=== PATIENT | male | born 1995 | race Two or more races ===

== ENCOUNTER 2023-10-20 11:33 | Inpatient (IN) | payer OTHER ==
[2023-10-20 13:05] VITALS: BMI 25.7
[2023-10-20] MEDS ORDERED: IBUPROFEN 600 MG TABLET (FP) PO PRN (14:07)
[2023-10-20] MEDS ORDERED: guaiFENesin 600 MG TABLET.ER (FP) PO PRN (14:07)
[2023-10-20] MEDS ORDERED: BENZONATATE 200 MG CAPSULE PO PRN (14:07)
[2023-10-20] MEDS ORDERED: POLYETHYLENE GLYCOL (HEALTHYLAX) 3350 17 GM PACKET PO PRN (14:07)
[2023-10-20] MEDS ORDERED: BENZOCAINE/MENTHOL (CHLORASEPTIC ) LOZENGE MM PRN (14:07)
[2023-10-20] MEDS ORDERED: MAGNESIUM HYDROX 2400MG/30ML ORAL SUSPENSION 30 ML CUP PO PRN (14:07)
[2023-10-20] MEDS ORDERED: NALOXONE HCL 0.4 MG/ML VIAL IM PRN (14:07)
[2023-10-20] MEDS ORDERED: IBUPROFEN 400 MG TABLET (FP) PO PRN (14:07)
[2023-10-20] MEDS ORDERED: LOPERAMIDE HCL 2 MG CAPSULE PO PRN (14:07)
[2023-10-20] MEDS ORDERED: NALOXONE (NARCAN) HCL 4 MG/0.1 ML SPRAY NS PRN (14:07)
[2023-10-20] MEDS ORDERED: MAG HYDROX/AL HYDROX/SIMETH 30 ML UNIT-DOSE CUP PO PRN (14:07)
[2023-10-20] MEDS ORDERED: NICOTINE 14 MG/24 HOURS TOPICAL PATCH TD ONE (15:17)
[2023-10-20] MEDS ORDERED: PRENATAL VITAMINS W/ FOLIC ACID TABLET (FP) PO ONE (15:17)
[2023-10-20] MEDS: PRENATAL VITAMINS W/ FOLIC ACID TABLET (FP) PO SCH (15:27)
[2023-10-20] MEDS: NICOTINE 14 MG/24 HOURS TOPICAL PATCH TD SCH (15:27)
[2023-10-20] MEDS ORDERED: TUBERCULIN PPD 5 TU/0.1ML VIAL ID ONE ×2 (16:42→21:38)
[2023-10-20] MEDS: THIAMINE 100 MG TABLET PO SCH (21:34)
[2023-10-20] MEDS: MELATONIN 5 MG TABLETS PO SCH (21:34)
[2023-10-21 12:53] LABS: HEMATOCRIT 45.4 % (35.4-49); HEMOGLOBIN 15.8 GM/dL (11.7-16.9); MCH 32.5 pg (25.7-33.7); MCHC 34.8 g/dl (32.0-35.9); MEAN CELL VOLUME 93.3 fl (80-96); MEAN PLT VOLUME 9.6 fl (7.5-11.1); PLATELET COUNT 224 10^3/uL (134-434); RBC 4.86 M/mm3 (4.00-5.60); RDW 12.8 % (11.9-15.9); WHITE BLOOD COUNT 5.7 K/mm3 (4.0-10.0)
[2023-10-21 13:02] LABS: POTASSIUM 4.4 mmol/L (3.5-5.1)
[2023-10-21 13:07] LABS: BLOOD UREA NITROGEN 8.3 mg/dL (7-18)
[2023-10-21 13:09] LABS: ALBUMIN 3.4 g/dl (3.4-5.0); CALCIUM 8.9 mg/dL (8.5-10.1)
[2023-10-21 13:11] LABS: CREATININE 0.7 mg/dL (0.55-1.3)
[2023-10-21 13:12] LABS: BILIRUBIN,TOTAL 0.6 mg/dL (0.2-1)
[2023-10-21 13:13] LABS: TOT PROT 6.3 g/dl (6.4-8.2)
[2023-10-21 13:14] LABS: SYPHILIS W/ RPR CONF NON-REACTIVE (NONREACTIVE)
[2023-10-21 13:56] LABS: HIV INTERPRETATION NEGATIVE (NEGATIVE)
[2023-10-21] MEDS: ARIPiprazole 2 MG TABLET PO ONE (14:06)
[2023-10-21 17:04] LABS: URINE APPEARANCE Slightly Cloudy; URINE BILIRUBIN Negative (NEGATIVE); URINE COLOR Dark yellow; URINE GLUCOSE (UA) Negative (NEGATIVE); URINE KETONE Trace (NEGATIVE); URINE LEUK ESTERASE Negative (NEGATIVE); URINE NITRITE Negative (NEGATIVE); URINE PROTEIN 1+ (NEGATIVE)
[2023-10-21 17:42] LABS: HYALINE CASTS 0.43 /uL (0-3.1); URINE BACTERIA 1.8 /uL (0-1359); URINE RBC 9.4 /uL (0-23.9); URINE WBC 4.3 /uL (0-25.8)
[2023-10-22] MEDS: ARIPiprazole 5 MG TABLET PO SCH (09:22)
[2023-10-22] MEDS: ACETAMINOPHEN 325 MG TABLET (FP) PO PRN (09:23)
[2023-10-23] MEDS: hydrOXYzine PAMOATE 25 MG CAPSULE (FP) PO PRN (21:49)
[2023-10-24] MEDS: HYDROCORTISONE 0.5% TOPICAL CREAM 30 GM TUBE TP PRN (10:37)
[2023-10-26] MEDS ORDERED: NICOTINE 14 MG/24 HOURS TOPICAL PATCH TD PRN (13:57)
[2023-10-28 06:21] VITALS: RESP 20
[2023-10-29 06:29] VITALS: BP 122/76; PULSE 76; TEMP 98
== END 2023-10-29 10:23 | disposition home or self-care (01) | DRG 772 ==
LOC: YASAS 11:33 → Y3E 15:57
PROVIDERS: ADMIT Allergy & Immunology; ATTEND Psychiatry & Neurology Pain Medicine
PROC: HZ42ZZZ Group Counseling for Substance Abuse Treatment, Cognitive-Behavioral (ICD-10-PCS; principal; 2023-10-20)
DX: F14.20 Cocaine dependence, uncomplicated (principal); F17.210 Nicotine dependence, cigarettes, uncomplicated; F19.24 Other psychoactive substance dependence with psychoactive substance-induced mood disorder; F32.A Depression, unspecified; L40.9 Psoriasis, unspecified; L21.0 Seborrhea capitis; R41.89 Other symptoms and signs involving cognitive functions and awareness; Z59.00 Homelessness unspecified
CPT/HCPCS: 36415; 80053; 80305; 81003; 85027; 86780; 86803; 87389; 87811; 93005; 93010